=== PATIENT | female | born 1955 | race Caucasian/White ===

== ENCOUNTER 2018-03-20 18:09 | Emergency (ER) | payer OTHER ==
[2018-03-20 18:51] LABS: ADD MAN DIFF? NO
[2018-03-20 18:55] LABS: BASOPHILS % 0.3 % (0.0-2.0); EOSINOPHILS # 0.1 10^3/ul (0.0-0.5); EOSINOPHILS % 0.4 % (0.0-7.0); HEMATOCRIT 31.6 % (37.0-47.0); HEMOGLOBIN 10.1 g/dl (12.0-16.0); LYMPHOCYTES # 1.5 10^3/ul (0.8-2.9); MEAN CORPUSCULAR HEMOGLOBIN 27.4 pg (29.0-33.0); MEAN CORPUSCULAR VOLUME 85.6 fl (82.0-101.0); MEAN PLATELET VOLUME 9.1 fl (7.4-10.4); MONOCYTE # 0.6 10^3/ul (0.3-0.9); MONOCYTES % 4.7 % (0.0-11.0); NEUTROPHIL # 10.2 10^3/ul (1.6-7.5); NEUTROPHILS % 82.4 % (39.0-77.0); PLATELET COUNT 310 10^3/UL (140-415); RED BLOOD COUNT 3.69 10^6/ul (4.20-5.40); RED CELL DISTRIBUTION WIDTH 14.4 % (11.5-14.5)
[2018-03-20 18:55] LABS: WHITE BLOOD COUNT 12.4 10^3/ul (4.8-10.8)
[2018-03-20 19:11] LABS: PROTIME 13.3 Sec (11.9-14.9)
[2018-03-20 19:16] LABS: ALANINE AMINOTRANSFERASE 45 IU/L (13-69); ALBUMIN 3.6 g/dl (3.3-4.9); ALBUMIN/GLOBULIN RATIO 1.09; ALKALINE PHOSPHATASE 131 IU/L (42-121); ANION GAP 6 (5-13); ASPARTATE AMINO TRANSFERASE 45 IU/L (15-46); BILIRUBIN,INDIRECT 0.5 mg/dl (0-1.1); BILIRUBIN,TOTAL 0.5 mg/dl (0.2-1.3); BLOOD UREA NITROGEN 26 mg/dl (7-20); CALCIUM 8.5 mg/dl (8.4-10.2); CARBON DIOXIDE 25 mmol/L (21-31); CHLORIDE 108 mmol/L (97-110); CREATININE 1.39 mg/dl (0.44-1.00); Estimated GFR 38 mL/min (>60); GLUCOSE 120 mg/dl (70-220); POTASSIUM 4.4 mmol/L (3.5-5.1); SODIUM 139 mmol/L (135-144); TOTAL PROTEIN 6.9 g/dl (6.1-8.1)
[2018-03-20] MEDS: ACETAMINOPHEN 500 MG TAB PO (19:18)
[2018-03-20] MEDS: ONDANSETRON 4 MG INJ IV (19:19)
[2018-03-20 19:27] LABS: TROPONIN-I < 0.012 ng/ml (0.000-0.120)
[2018-03-20] MEDS: KETOROLAC 15 MG INJ IV (20:02)
[2018-03-20 22:23] LABS: URINE PH (Dip) POC 5.5 (5.0-8.5)
[2018-03-20 22:23] LABS: URINE BLOOD (Dip) POC 1+ (NEGATIVE); URINE GLUCOSE (Dip) POC Negative (NEGATIVE); URINE KETONES (Dip) POC Negative (NEGATIVE); URINE LEUKOCYTE EST (Dip) POC Negative (NEGATIVE); URINE NITRITE (Dip) POC Negative (NEGATIVE); URINE TOTAL PROTEIN POC 3+ (NEGATIVE)
[2018-03-20 22:37] LABS: ADD UMIC YES; UR ASCORBIC ACID NEGATIVE (NEGATIVE); UR BACTERIA FEW /HPF (NONE SEEN); UR BILIRUBIN (Dip) NEGATIVE (NEGATIVE); UR BLOOD (Dip) 1+ mg/dL (NEGATIVE); UR CLARITY SLIGHTLY CLOUDY (CLEAR); UR COLOR YELLOW (YELLOW); UR GLUCOSE (Dip) NEGATIVE (NEGATIVE); UR KETONES (Dip) NEGATIVE (NEGATIVE); UR LEUKOCYTE ESTERASE (Dip) NEGATIVE Leu/ul (NEGATIVE); UR NITRITE (Dip) NEGATIVE (NEGATIVE); UR RBC 2 /HPF (0-5); UR SPECIFIC GRAVITY (Dip) 1.012 (1.003-1.030); UR TOTAL PROTEIN (Dip) 2+ mg/dl (NEGATIVE); UR UROBILINOGEN (Dip) NEGATIVE (NEGATIVE); UR WBC 3 /HPF (0-5)
== END 2018-03-20 22:46 | disposition home or self-care (01) ==
LOC: E/R 18:09
DX: B34.9 Viral infection, unspecified (principal); I10 Essential (primary) hypertension; R07.9 Chest pain, unspecified; R50.9 Fever, unspecified; E11.9 Type 2 diabetes mellitus without complications; Z79.4 Long term (current) use of insulin; Z79.82 Long term (current) use of aspirin
CPT/HCPCS: 36415; 70450; 71045; 80053; 81001; 81003; 84484; 85025; 85610; 87086; 93005; 96374; 99285-25

== ENCOUNTER 2018-08-11 23:45 | Emergency (ER) | payer OTHER ==
[2018-08-12 03:25] LABS: ADD MAN DIFF? NO
[2018-08-12 03:26] LABS: BASOPHIL # 0.1 10^3/ul (0.0-0.1); BASOPHILS % 0.5 % (0.0-2.0); EOSINOPHILS # 0.6 10^3/ul (0.0-0.5); EOSINOPHILS % 5.4 % (0.0-7.0); HEMATOCRIT 32.1 % (37.0-47.0); HEMOGLOBIN 10.2 g/dl (12.0-16.0); LYMPHOCYTES # 2.7 10^3/ul (0.8-2.9); LYMPHOCYTES % 23.3 % (15.0-51.0); MEAN CORPUSCULAR HEMOGLOBIN 27.3 pg (29.0-33.0); MEAN CORPUSCULAR HGB CONC 31.8 g/dl (32.0-37.0); MEAN CORPUSCULAR VOLUME 86.1 fl (82.0-101.0); MEAN PLATELET VOLUME 9.6 fl (7.4-10.4); MONOCYTE # 0.7 10^3/ul (0.3-0.9); MONOCYTES % 5.7 % (0.0-11.0); NEUTROPHIL # 7.5 10^3/ul (1.6-7.5); NEUTROPHILS % 64.7 % (39.0-77.0); PLATELET COUNT 330 10^3/UL (140-415); RED BLOOD COUNT 3.73 10^6/ul (4.20-5.40); RED CELL DISTRIBUTION WIDTH 13.4 % (11.5-14.5)
[2018-08-12 03:26] LABS: WHITE BLOOD COUNT 11.7 10^3/ul (4.8-10.8)
[2018-08-12 03:32] LABS: URINE BLOOD (Dip) POC Trace-lysed (NEGATIVE); URINE GLUCOSE (Dip) POC Negative (NEGATIVE); URINE KETONES (Dip) POC Negative (NEGATIVE); URINE LEUKOCYTE EST (Dip) POC Negative (NEGATIVE); URINE NITRITE (Dip) POC Negative (NEGATIVE); URINE TOTAL PROTEIN POC 3+ (NEGATIVE)
[2018-08-12] MEDS: morphine 2 MG INJ IV (03:35)
[2018-08-12] MEDS: ONDANSETRON 4 MG INJ IV (03:35)
[2018-08-12 03:47] LABS: ALANINE AMINOTRANSFERASE 12 IU/L (13-69); ALBUMIN 4.2 g/dl (3.3-4.9); ALBUMIN/GLOBULIN RATIO 1.05; ALKALINE PHOSPHATASE 128 IU/L (42-121); ANION GAP 10 (5-13); ASPARTATE AMINO TRANSFERASE 16 IU/L (15-46); BILIRUBIN,INDIRECT 0.4 mg/dl (0-1.1); BILIRUBIN,TOTAL 0.4 mg/dl (0.2-1.3); BLOOD UREA NITROGEN 40 mg/dl (7-20); CALCIUM 9.3 mg/dl (8.4-10.2); CARBON DIOXIDE 26 mmol/L (21-31); CHLORIDE 105 mmol/L (97-110); CREATININE 1.83 mg/dl (0.44-1.00); Estimated GFR 28 mL/min (>60); GLUCOSE 106 mg/dl (70-220); LIPASE 57 U/L (23-300); POTASSIUM 4.9 mmol/L (3.5-5.1); SODIUM 141 mmol/L (135-144); TOTAL PROTEIN 8.2 g/dl (6.1-8.1)
== END 2018-08-12 05:36 | disposition home or self-care (01) ==
LOC: E/R 23:45
DX: K42.9 Umbilical hernia without obstruction or gangrene (principal); D64.9 Anemia, unspecified; E11.22 Type 2 diabetes mellitus with diabetic chronic kidney disease; N18.9 Chronic kidney disease, unspecified; I13.0 Hypertensive heart and chronic kidney disease with heart failure and stage 1 through stage 4 chronic kidney disease, or unspecified chronic kidney disease; I50.9 Heart failure, unspecified; Z79.4 Long term (current) use of insulin; Z79.82 Long term (current) use of aspirin
CPT/HCPCS: 36415; 80053; 81003; 81025; 83690; 85025; 96374; 96375; 99284-25

== ENCOUNTER 2018-09-21 11:05 | Inpatient (IN) | payer OTHER ==
[2018-09-21 12:39] LABS: ADD MAN DIFF? NO
[2018-09-21 12:43] LABS: BASOPHIL # 0.1 10^3/ul (0.0-0.1); BASOPHILS % 0.6 % (0.0-2.0); EOSINOPHILS # 0.5 10^3/ul (0.0-0.5); EOSINOPHILS % 4.3 % (0.0-7.0); HEMATOCRIT 30.8 % (37.0-47.0); HEMOGLOBIN 9.6 g/dl (12.0-16.0); LYMPHOCYTES # 2.3 10^3/ul (0.8-2.9); LYMPHOCYTES % 20.4 % (15.0-51.0); MEAN CORPUSCULAR HEMOGLOBIN 26.9 pg (29.0-33.0); MEAN CORPUSCULAR HGB CONC 31.2 g/dl (32.0-37.0); MEAN CORPUSCULAR VOLUME 86.3 fl (82.0-101.0); MEAN PLATELET VOLUME 9.7 fl (7.4-10.4); MONOCYTE # 0.8 10^3/ul (0.3-0.9); MONOCYTES % 6.8 % (0.0-11.0); NEUTROPHIL # 7.5 10^3/ul (1.6-7.5); NEUTROPHILS % 67.5 % (39.0-77.0); PLATELET COUNT 292 10^3/UL (140-415); RED BLOOD COUNT 3.57 10^6/ul (4.20-5.40); RED CELL DISTRIBUTION WIDTH 13.7 % (11.5-14.5)
[2018-09-21 12:43] LABS: WHITE BLOOD COUNT 11.1 10^3/ul (4.8-10.8)
[2018-09-21 12:57] LABS: ADD UMIC YES; UR ASCORBIC ACID NEGATIVE (NEGATIVE); UR BACTERIA FEW /HPF (NONE SEEN); UR BILIRUBIN (Dip) NEGATIVE (NEGATIVE); UR BLOOD (Dip) NEGATIVE (NEGATIVE); UR CLARITY SLIGHTLY CLOUDY (CLEAR); UR COLOR YELLOW (YELLOW); UR GLUCOSE (Dip) NEGATIVE (NEGATIVE); UR KETONES (Dip) NEGATIVE (NEGATIVE); UR LEUKOCYTE ESTERASE (Dip) NEGATIVE Leu/ul (NEGATIVE); UR NITRITE (Dip) NEGATIVE (NEGATIVE); UR RBC 1 /HPF (0-5); UR SPECIFIC GRAVITY (Dip) 1.012 (1.003-1.030); UR SQUAMOUS EPITHELIAL CELL FEW /HPF (FEW); UR TOTAL PROTEIN (Dip) 2+ mg/dl (NEGATIVE); UR UROBILINOGEN (Dip) NEGATIVE (NEGATIVE); UR WBC 2 /HPF (0-5)
[2018-09-21 13:05] LABS: ALANINE AMINOTRANSFERASE 17 IU/L (13-69); ALBUMIN 4.3 g/dl (3.3-4.9); ALBUMIN/GLOBULIN RATIO 1.22; ALKALINE PHOSPHATASE 113 IU/L (42-121); ANION GAP 9 (5-13); ASPARTATE AMINO TRANSFERASE 20 IU/L (15-46); BILIRUBIN,INDIRECT 0.5 mg/dl (0-1.1); BILIRUBIN,TOTAL 0.5 mg/dl (0.2-1.3); BLOOD UREA NITROGEN 47 mg/dl (7-20); CALCIUM 9.6 mg/dl (8.4-10.2); CARBON DIOXIDE 27 mmol/L (21-31); CHLORIDE 105 mmol/L (97-110); CREATININE 2.22 mg/dl (0.44-1.00); Estimated GFR 22 mL/min (>60); GLUCOSE 120 mg/dl (70-220); POTASSIUM 5.3 mmol/L (3.5-5.1); SODIUM 141 mmol/L (135-144); TOTAL PROTEIN 7.8 g/dl (6.1-8.1)
[2018-09-21 13:18] LABS: B-TYPE NATRIURETIC PEPTIDE 563 PG/ML (0-125); TROPONIN-I < 0.012 ng/ml (0.000-0.120)
[2018-09-21] MEDS ORDERED: FUROSEMIDE 20 MG INJ IV (14:30)
[2018-09-21] MEDS: FUROSEMIDE 40 MG INJ IV ×2 (14:42→20:00)
[2018-09-21] MEDS ORDERED: ONDANSETRON 4 MG INJ IV ×2 (15:30→17:30)
[2018-09-21] MEDS ORDERED: ACETAMINOPHEN 325 MG TAB PO (15:30)
[2018-09-21] MEDS ORDERED: NACL 0.9% 3 ML SYG IV (17:30)
[2018-09-21] MEDS ORDERED: BISACODYL (EC) 5 MG TAB PO (17:30)
[2018-09-21] MEDS ORDERED: HYDROCODONE/APAP (5/325) TAB PO (17:30)
[2018-09-21] MEDS ORDERED: DOCUSATE SODIUM 100 MG CAP PO (17:30)
[2018-09-21] MEDS ORDERED: morphine 2 MG INJ IV (17:30)
[2018-09-21] MEDS: INSULIN ASPART [NOVOLOG] 3 ML PEN SC ×3 (18:00→21:00)
[2018-09-21] MEDS ORDERED: GLUCOSE GEL 15 GRAM TUBE PO ×2 (18:30)
[2018-09-21] MEDS ORDERED: DEXTROSE 50% 50 ML SYRINGE IV ×2 (18:30)
[2018-09-21] MEDS ORDERED: GLUCAGON 1 MG INJ IM (18:30)
[2018-09-21] MEDS ORDERED: GLUCOSE GEL 15 GRAM TUBE BUCCAL (18:30)
[2018-09-21 18:56] LABS: CREATININE,URINE RANDOM 95.18 mg/dl (20-320)
[2018-09-21 18:56] LABS: SODIUM,URINE RANDOM 30 mmol/L (30-90)
[2018-09-21] MEDS: FAMOTIDINE 20 MG TAB PO (21:00)
[2018-09-21] MEDS: INSULIN GLARGINE [LANTus] (100 UNITS/ML) SYG SC (21:07)
[2018-09-21] MEDS: ATORVASTATIN 20 MG TAB PO (21:26)
[2018-09-21 21:39] LABS: TROPONIN-I < 0.012 ng/ml (0.000-0.120)
[2018-09-22] MEDS: ACETAMINOPHEN 325 MG TAB PO (05:10)
[2018-09-22] MEDS: FUROSEMIDE 40 MG INJ IV ×3 (05:16→21:05)
[2018-09-22] MEDS: hydrALAzine 20 MG INJ IV ×3 (05:16→20:11)
[2018-09-22 05:19] LABS: ADD MAN DIFF? NO
[2018-09-22 05:23] LABS: WHITE BLOOD COUNT 8.4 10^3/ul (4.8-10.8)
[2018-09-22 05:23] LABS: BASOPHIL # 0.1 10^3/ul (0.0-0.1); BASOPHILS % 0.7 % (0.0-2.0); EOSINOPHILS # 0.4 10^3/ul (0.0-0.5); EOSINOPHILS % 4.7 % (0.0-7.0); HEMATOCRIT 28.1 % (37.0-47.0); HEMOGLOBIN 8.7 g/dl (12.0-16.0); LYMPHOCYTES # 1.8 10^3/ul (0.8-2.9); LYMPHOCYTES % 21.6 % (15.0-51.0); MEAN CORPUSCULAR HEMOGLOBIN 26.9 pg (29.0-33.0); MEAN CORPUSCULAR VOLUME 86.7 fl (82.0-101.0); MONOCYTE # 0.6 10^3/ul (0.3-0.9); MONOCYTES % 7.6 % (0.0-11.0); NEUTROPHIL # 5.5 10^3/ul (1.6-7.5); PLATELET COUNT 274 10^3/UL (140-415); RED BLOOD COUNT 3.24 10^6/ul (4.20-5.40); RED CELL DISTRIBUTION WIDTH 13.7 % (11.5-14.5)
[2018-09-22 05:38] LABS: INR 1.03; PROTIME 13.6 Sec (11.9-14.9); PT RATIO 1.1
[2018-09-22 05:58] LABS: ALANINE AMINOTRANSFERASE 20 IU/L (13-69); ALBUMIN 3.5 g/dl (3.3-4.9); ALBUMIN/GLOBULIN RATIO 1.16; ALKALINE PHOSPHATASE 92 IU/L (42-121); ANION GAP 6 (5-13); ASPARTATE AMINO TRANSFERASE 15 IU/L (15-46); BILIRUBIN,INDIRECT 0.5 mg/dl (0-1.1); BILIRUBIN,TOTAL 0.5 mg/dl (0.2-1.3); BLOOD UREA NITROGEN 46 mg/dl (7-20); CALCIUM 9.2 mg/dl (8.4-10.2); CARBON DIOXIDE 30 mmol/L (21-31); CHLORIDE 106 mmol/L (97-110); CREATININE 1.99 mg/dl (0.44-1.00); Estimated GFR 25 mL/min (>60); GLUCOSE 199 mg/dl (70-220); MAGNESIUM 2.5 mg/dl (1.7-2.5); PHOSPHORUS 4.8 mg/dl (2.5-4.9); POTASSIUM 4.9 mmol/L (3.5-5.1); SODIUM 142 mmol/L (135-144); TOTAL PROTEIN 6.5 g/dl (6.1-8.1)
[2018-09-22 06:02] LABS: TROPONIN-I < 0.012 ng/ml (0.000-0.120)
[2018-09-22 07:16] LABS: HEMOGLOBIN A1C 8.4 % (0-5.9)
[2018-09-22] MEDS: INSULIN ASPART [NOVOLOG] 3 ML PEN SC ×7 (08:36→21:10)
[2018-09-22] MEDS: ASPIRIN 81 MG TAB PO (08:54)
[2018-09-22] MEDS: THIAMINE 100 MG TAB PO (08:54)
[2018-09-22] MEDS: FAMOTIDINE 20 MG TAB PO (08:54)
[2018-09-22] MEDS: ENOXAPARIN 30 MG/0.3 ML SYG SC (08:57)
[2018-09-22 15:31] LABS: ADD UMIC YES; UR ASCORBIC ACID NEGATIVE (NEGATIVE); UR BACTERIA FEW /HPF (NONE SEEN); UR BILIRUBIN (Dip) NEGATIVE (NEGATIVE); UR BLOOD (Dip) NEGATIVE (NEGATIVE); UR CLARITY SLIGHTLY CLOUDY (CLEAR); UR COLOR YELLOW (YELLOW); UR GLUCOSE (Dip) 1+ mg/dL (NEGATIVE); UR KETONES (Dip) NEGATIVE (NEGATIVE); UR LEUKOCYTE ESTERASE (Dip) NEGATIVE Leu/ul (NEGATIVE); UR NITRITE (Dip) NEGATIVE (NEGATIVE); UR RBC 1 /HPF (0-5); UR SPECIFIC GRAVITY (Dip) 1.011 (1.003-1.030); UR TOTAL PROTEIN (Dip) 2+ mg/dl (NEGATIVE); UR UROBILINOGEN (Dip) NEGATIVE (NEGATIVE); UR WBC 0 /HPF (0-5)
[2018-09-22 15:43] LABS: CREATININE,URINE RANDOM 60.83 mg/dl (20-320)
[2018-09-22 15:43] LABS: SODIUM,URINE RANDOM 53 mmol/L (30-90)
[2018-09-22] MEDS: ATORVASTATIN 20 MG TAB PO (21:05)
[2018-09-22] MEDS: INSULIN GLARGINE [LANTus] (100 UNITS/ML) SYG SC (21:11)
[2018-09-23 05:09] LABS: ADD MAN DIFF? NO
[2018-09-23 05:12] LABS: BASOPHIL # 0.1 10^3/ul (0.0-0.1); BASOPHILS % 0.6 % (0.0-2.0); EOSINOPHILS # 0.4 10^3/ul (0.0-0.5); EOSINOPHILS % 3.8 % (0.0-7.0); HEMATOCRIT 28.7 % (37.0-47.0); HEMOGLOBIN 8.9 g/dl (12.0-16.0); LYMPHOCYTES % 19.5 % (15.0-51.0); MEAN CORPUSCULAR HEMOGLOBIN 26.5 pg (29.0-33.0); MEAN CORPUSCULAR VOLUME 85.4 fl (82.0-101.0); MEAN PLATELET VOLUME 9.9 fl (7.4-10.4); MONOCYTE # 0.8 10^3/ul (0.3-0.9); MONOCYTES % 7.3 % (0.0-11.0); NEUTROPHIL # 7.1 10^3/ul (1.6-7.5); NEUTROPHILS % 68.5 % (39.0-77.0); PLATELET COUNT 296 10^3/UL (140-415); RED BLOOD COUNT 3.36 10^6/ul (4.20-5.40)
[2018-09-23 05:12] LABS: WHITE BLOOD COUNT 10.3 10^3/ul (4.8-10.8)
[2018-09-23 05:35] LABS: MAGNESIUM 2.2 mg/dl (1.7-2.5)
[2018-09-23 05:46] LABS: ANION GAP 9 (5-13); BLOOD UREA NITROGEN 52 mg/dl (7-20); CALCIUM 8.8 mg/dl (8.4-10.2); CARBON DIOXIDE 29 mmol/L (21-31); CHLORIDE 102 mmol/L (97-110); Estimated GFR 22 mL/min (>60); GLUCOSE 146 mg/dl (70-220); POTASSIUM 4.3 mmol/L (3.5-5.1); SODIUM 140 mmol/L (135-144)
[2018-09-23] MEDS: FUROSEMIDE 40 MG INJ IV ×2 (06:16→21:15)
[2018-09-23] MEDS: ACETAMINOPHEN 325 MG TAB PO (06:16)
[2018-09-23] MEDS: ASPIRIN 81 MG TAB PO (08:40)
[2018-09-23] MEDS: THIAMINE 100 MG TAB PO (08:41)
[2018-09-23] MEDS: FAMOTIDINE 20 MG TAB PO (08:41)
[2018-09-23] MEDS: ENOXAPARIN 30 MG/0.3 ML SYG SC (08:43)
[2018-09-23] MEDS: INSULIN ASPART [NOVOLOG] 3 ML PEN SC ×7 (08:44→21:17)
[2018-09-23 15:22] LABS: CREATININE, RANDOM URINE 65 mg/dL (20-275); MICROALBUMIN 93.9 mg/dL; MICROALBUMIN/CREATININE RATIO 1445 (<30)
[2018-09-23] MEDS: ATORVASTATIN 20 MG TAB PO (21:14)
[2018-09-23] MEDS: INSULIN GLARGINE [LANTus] (100 UNITS/ML) SYG SC (21:17)
[2018-09-24 05:25] LABS: ANION GAP 6 (5-13); BLOOD UREA NITROGEN 53 mg/dl (7-20); CALCIUM 8.7 mg/dl (8.4-10.2); CARBON DIOXIDE 31 mmol/L (21-31); CHLORIDE 103 mmol/L (97-110); CREATININE 2.46 mg/dl (0.44-1.00); Estimated GFR 20 mL/min (>60); GLUCOSE 139 mg/dl (70-220); MAGNESIUM 2.2 mg/dl (1.7-2.5); PHOSPHORUS 5.3 mg/dl (2.5-4.9); SODIUM 140 mmol/L (135-144)
[2018-09-24] MEDS: FAMOTIDINE 20 MG TAB PO (09:13)
[2018-09-24] MEDS: THIAMINE 100 MG TAB PO (09:14)
[2018-09-24] MEDS: ASPIRIN 81 MG TAB PO (09:14)
[2018-09-24] MEDS: FUROSEMIDE 40 MG INJ IV ×2 (09:16→20:29)
[2018-09-24] MEDS: INSULIN ASPART [NOVOLOG] 3 ML PEN SC ×7 (09:17→20:32)
[2018-09-24] MEDS: ENOXAPARIN 30 MG/0.3 ML SYG SC (09:19)
[2018-09-24] MEDS: METOLAZONE 2.5 MG TAB PO (13:36)
[2018-09-24] MEDS: ATORVASTATIN 20 MG TAB PO (20:30)
[2018-09-24] MEDS: INSULIN GLARGINE [LANTus] (100 UNITS/ML) SYG SC (20:32)
[2018-09-25 06:36] LABS: ANION GAP 12 (5-13); BLOOD UREA NITROGEN 50 mg/dl (7-20); CALCIUM 9.7 mg/dl (8.4-10.2); CARBON DIOXIDE 31 mmol/L (21-31); CHLORIDE 99 mmol/L (97-110); CREATININE 2.32 mg/dl (0.44-1.00); Estimated GFR 21 mL/min (>60); GLUCOSE 92 mg/dl (70-220); MAGNESIUM 2.4 mg/dl (1.7-2.5); PHOSPHORUS 5.4 mg/dl (2.5-4.9); POTASSIUM 4.3 mmol/L (3.5-5.1); SODIUM 142 mmol/L (135-144)
[2018-09-25] MEDS: INSULIN ASPART [NOVOLOG] 3 ML PEN SC ×7 (07:50→20:25)
[2018-09-25] MEDS: ENOXAPARIN 30 MG/0.3 ML SYG SC (08:26)
[2018-09-25] MEDS: THIAMINE 100 MG TAB PO (08:26)
[2018-09-25] MEDS: FAMOTIDINE 20 MG TAB PO (08:26)
[2018-09-25] MEDS: ASPIRIN 81 MG TAB PO (08:26)
[2018-09-25] MEDS: FUROSEMIDE 40 MG INJ IV ×2 (08:27→20:28)
[2018-09-25] MEDS: METOLAZONE 2.5 MG TAB PO (12:49)
[2018-09-25] MEDS: INSULIN GLARGINE [LANTus] (100 UNITS/ML) SYG SC (20:24)
[2018-09-25] MEDS: ATORVASTATIN 20 MG TAB PO (20:27)
[2018-09-26 05:57] LABS: ANION GAP 9 (5-13); BLOOD UREA NITROGEN 60 mg/dl (7-20); CARBON DIOXIDE 32 mmol/L (21-31); CHLORIDE 98 mmol/L (97-110); CREATININE 2.35 mg/dl (0.44-1.00); Estimated GFR 21 mL/min (>60); GLUCOSE 145 mg/dl (70-220); MAGNESIUM 2.3 mg/dl (1.7-2.5); PHOSPHORUS 5.6 mg/dl (2.5-4.9); SODIUM 139 mmol/L (135-144)
[2018-09-26] MEDS: THIAMINE 100 MG TAB PO (09:02)
[2018-09-26] MEDS: ASPIRIN 81 MG TAB PO (09:02)
[2018-09-26] MEDS: FUROSEMIDE 40 MG INJ IV (09:03)
[2018-09-26] MEDS: FAMOTIDINE 20 MG TAB PO (09:03)
[2018-09-26] MEDS: ENOXAPARIN 30 MG/0.3 ML SYG SC (09:04)
[2018-09-26] MEDS: INSULIN ASPART [NOVOLOG] 3 ML PEN SC ×2 (09:05)
== END 2018-09-26 11:35 | disposition home or self-care (01) | DRG 291 ==
LOC: FTE 11:05 → MS1 15:19
DX: I13.0 Hypertensive heart and chronic kidney disease with heart failure and stage 1 through stage 4 chronic kidney disease, or unspecified chronic kidney disease (principal); I50.31 Acute diastolic (congestive) heart failure; N17.9 Acute kidney failure, unspecified; Z68.41 Body mass index [BMI] 40.0-44.9, adult; E11.22 Type 2 diabetes mellitus with diabetic chronic kidney disease; N18.9 Chronic kidney disease, unspecified; D63.1 Anemia in chronic kidney disease; E88.81 Metabolic syndrome and other insulin resistance; E66.3 Overweight; E11.21 Type 2 diabetes mellitus with diabetic nephropathy; Z90.49 Acquired absence of other specified parts of digestive tract
CPT/HCPCS: 71046; 80048; 80053; 81001; 81003; 82043; 82962; 83036; 83735; 83880; 84100; 84155; 84300; 84443; 84484; 85025; 85610; 93005; 93970; 96374; 99285-25